=== PATIENT | male | born 1985 | race Caucasian/White ===

== ENCOUNTER 2018-06-16 10:38 | Emergency (ER) | payer OTHER ==
[2018-06-16] MEDS: ONDANSETRON (ODT) 4 MG TAB ODT (11:10)
== END 2018-06-16 11:44 | disposition home or self-care (01) ==
LOC: FTE 10:38
DX: R42 Dizziness and giddiness (principal); R11.0 Nausea
CPT/HCPCS: 82962; 93005; 99283-25